=== PATIENT | female | born 1985 | race Asian ===

== ENCOUNTER 2022-06-17 09:07 | Outpatient (CLI) | payer MEDICAID, SELFPAY | END 2022-06-17 09:08 | disposition home or self-care (01) | LOC: LKVREF 06-20 15:58 | PROVIDERS: Visit Provider Advanced Practice Midwife | DX: O09.42 Supervision of pregnancy with grand multiparity, second trimester (principal); Z86.32 Personal history of gestational diabetes | CPT/HCPCS: 86592 ==

== ENCOUNTER 2022-06-19 15:33 | Outpatient (CLI) | payer MEDICAID, SELFPAY ==
[2022-06-19 21:59] LABS: HIV 1/2/P24 Combo Screen* Negative (Negative)
[2022-06-19 22:08] LABS: Hepatitis B Surface Antigen* Negative (Negative)
[2022-06-19 22:25] LABS: Hepatitis C Virus Antibody* Negative (Negative)
[2022-06-22 01:18] LABS: Rapid Plasma Reagin (RPR) Reactive (Non Reactive)
[2022-06-22 02:26] LABS: Varicella-Zoster Virus Ab, IgG 953.8 IV
[2022-06-23 21:10] LABS: Treponema pallidum AbTP-PA Non Reactive (Non Reactive)
== END 2022-06-19 15:34 | disposition home or self-care (01) ==
PROVIDERS: Visit Provider Advanced Practice Midwife
DX: O09.523 Supervision of elderly multigravida, third trimester (principal); Z3A.29 29 weeks gestation of pregnancy
CPT/HCPCS: 86592; 86593; 86703; 86762; 86780; 86787; 86803; 86850; 86900; 86901; 87086; 87340

== ENCOUNTER 2022-08-07 15:18 | Outpatient (CLI) | payer MEDICAID, SELFPAY ==
[2022-08-08 17:16] LABS: Strep B DNA Probe NEGATIVE (Negative)
[2022-08-08 17:17] LABS: Strep B Pen/Amox Allergy No
== END 2022-08-07 15:19 | disposition home or self-care (01) ==
LOC: FRMREF 15:19
PROVIDERS: Visit Provider Advanced Practice Midwife
DX: Z34.83 Encounter for supervision of other normal pregnancy, third trimester (principal); Z3A.36 36 weeks gestation of pregnancy
CPT/HCPCS: 87081; 87653

== ENCOUNTER 2022-09-07 12:06 | Outpatient (CLI) | payer MEDICAID, SELFPAY ==
[2022-09-07 12:24] VITALS: BP 107/70; PULSE 101; PULSE 102; O2SAT 100
[2022-09-07 12:25] VITALS: RESP 16; TEMP 36.5
--- NOTE | 2022-09-07 15:25 | PC.OBNST ---
NST Note NST Note Start: 09/07/22 12:19 Freq: ONCE Status: Active Protocol: Document 09/07/22 15:18 SHANNA (Rec: 09/07/22 15:24 SHANNA [id number]) NST Note 10 Para (# of births) 8 EDC 08/31/22 Gestational Age In Weeks & Days 41 Weeks & 0 Days High Risk Factors Advanced Maternal Age Patient Presented with Complaint(s) of Contractions/cramping Other Complaints Pt. presented to OB with irregular UC's. Pt. was observed and membranes stripped per Pt request. No cervical change was made in her 3 hour stay so she elected to go home. Reactive Yes Appropriate for Gestational Age Yes TASIA Anderson Date 09/07/22 Reactive Yes Appropriate for Gestational Age Yes TASIA Rey Date 09/07/22 OB NST charge Yes Complete NST Note via Write Note Yes The provider's electronic signature indicates the NST is reactive/appropriate for gestational age. *Note to provider: If an addendum is required, open the patient's chart and click on the note under the Nurse/Allied Health tab.
== END 2022-09-07 15:15 | disposition home or self-care (01) ==
LOC: OB OUT 12:07 → OB 12:08
PROVIDERS: Visit Provider Advanced Practice Midwife
DX: O47.1 False labor at or after 37 completed weeks of gestation (principal); Z3A.41 41 weeks gestation of pregnancy; O09.523 Supervision of elderly multigravida, third trimester
CPT/HCPCS: 59025; 99213

== ENCOUNTER 2022-09-11 12:25 | Outpatient (CLI) | payer MEDICAID, SELFPAY ==
--- NOTE | 2022-09-11 12:15 | CRLHL7_ITS ---
For Patients: As a result of the Century Cures Act, medical imaging exams and procedure reports are released immediately into your electronic medical record. You may view this report before your referring provider. If you have questions, please contact your health care provider. Indication: Post dates. Technique: Sonography of the gravid uterus is performed as per biophysical profile protocol. Only that which is discussed below was studied. Comparison: None Findings: The cervix was not visualized. Position is vertex during the exam The single deepest pocket is 5.7 centimeters. The placenta was posterior. heart rate was 141 beats per minute. The biophysical profile score is 6 out of 8. respiratory motions were identified but insufficient as per protocol to warrant 2 points. Impression: 1. The biophysical profile score is 6 out of 8 due to decreased apparent respiratory motions during the time course of this exam. 2. The position is vertex. Single deepest pocket is 5.7 centimeters. Posterior placenta. heart rate 141 beats per minute. Dictated by Ankush Garces MD @ 09/11/2022 1:54:08 PM (Electronically Signed)
== END 2022-09-11 12:26 | disposition home or self-care (01) ==
LOC: US 12:25
PROVIDERS: Visit Provider Advanced Practice Midwife
DX: O48.0 Post-term pregnancy (principal)
CPT/HCPCS: 76819

== ENCOUNTER 2022-09-13 08:03 | Inpatient (IN) | payer MEDICAID, SELFPAY ==
[2022-09-13] VITALS (13 sets, daily range): BP systolic 100–125; BP diastolic 55–81; PULSE 79–111; RESP 16; TEMP 36.6–36.7; O2SAT 96–99; BMI 32.7
[2022-09-13 09:32] LABS: Basophils Percent Auto 0.5 % (0.0-3.0); Eosinophils Percent Auto 0.3 % (0.0-7.0); Hematocrit 33.9 % (33.0-51.0); Hemoglobin* 10.6 gm/dL (12.0-16.0); Immature Granulocytes Pct Auto 0.2 %; Mean Corpuscular HGB Conc 31 gm/dL (32-36); Mean Corpuscular Hemoglobin 26 pg (26-34); Mean Corpuscular Volume 82 fL (80-100); Monocytes Percent Auto 8.3 % (0.0-11.0); Neutrophils Percent Auto 70.7 % (42.0-72.0); Platelet Count* 153 K/uL (140-440); RDW Coefficient of Variation % 16.7 % (11.5-15.5); Red Blood Count 4.15 m/uL (4.00-5.20)
[2022-09-13 09:40] LABS: Slide Review Reflex No
[2022-09-13 10:18] LABS: SARS PCR* Negative SARS-CoV-2 (Negative)
--- NOTE | 2022-09-13 11:24 | P.LDBA_ITS ---
Subjective History of Present Illness Date Seen: 09/13/22 Narrative: Patient is being admitted to Labor and Delivery for IOL for post dates . She is a 36 year old at 41.6 weeks gestation. Her full history and physical was dictated by MANUEL Padilla with supervision by DARRELL Mohr on 08/21/22. Please see this for details. Discussed options for IOL including AROM, cytotec, and pitcin. Not a great candidate for Cytotec due to cervical dilation. Would like to proceed with AROM. 1. History of GDM-diet controlled three previous pregnancies Passed 1hr GTT 2. Grand Multiparity Discuss AMTSL, TXA, IV access in labor 3. Latent TB Recent chest x-ray at work in July was negative. Has always had negative chest x-rays. Offered quantiferon gold at [facility] but declined 4. Late to PNC (1st visit 05/16 at 24.5 weeks) - Pt did not realize she was earlier. 5. Hx PP anemia (hgb 8.1) w/o hemorrhage 6. AMA OB - Problem Based A/P Additional Plan (1) Encounter for induction of labor: Status: Acute (2) AMA (advanced maternal age) multigravida 35+: Status: Acute (3) Supervision of with grand multiparity, third trimester: Status: Acute (4) Post-dates : Status: Acute Plan ASSESSMENT:? at 41.6 weeks gestation? GBS negative? Uncomplicated ? Postterm IOL? ?? PLAN:? 1. Reviewed risks and benefits of IOL with pitocin vs cytotec vs AROM. Pt prefers AROM. Pitocin to follow if needed.? 2. Candidate for analgesia of choice. Planning unmedicated . 3. Anticipate . Plan IV pitocin PP. Consider IV TXA before delivery. Pt is hesitant to receive before delivery. 4. Expectant management at this time. 5. IV in place. 6. Intermittent monitoring after reactive tracing. Delivery/Labor/Induction Plan Plan: induction Induction method: AROM OB Result Labs Blood Type: A (+) positive GBS Status: negative OB Exam Physical Exam Vital signs: Pulse BP 111 H 111/55 L 09/13/22 08:19 09/13/22 08:19 Narrative: Vitals per EMR? Psychiatric:? Alert and oriented x3? HEENT:? Normocephalic, atraumatic? Neck:? Supple without adenopathy or thyromegaly? Lungs:? Clear to auscultation bilaterally? Heart:? Regular rate and rhythm, no murmur, rub or gallop? Abdomen:? Soft, nontender, and gravid? Extremities:? No edema or erythema?? FHT:? Moderate Variability.? Positive Accels.? No Decels. Baseline [].? [place]:? Ctx Q[]min? Detailed Labor and Delivery Exam Patient Gravid: Yes Dilation (cm): 4 Effacement (%): 80 Cervix position: posterior Consistency: soft Contraction Frequency: 8-10 min Contraction intensity: Moderate Fetus (Single) Station: -2 Amniotic Membrane Status: intact Heart Rate Baseline: 125 Monitor Accelerations: Present Monitor Decelerations: None Audiovisual Equipment Operator Variability: Moderate (6-25)
--- NOTE | 2022-09-13 13:32 | PM.OBPNL ---
Subjective Date Seen: 09/13/22 Narrative: Unable to AROM when attempted earlier around 0900 due to posterior cervical position. Encouraged position changes. Offered pitocin but declined at this time and would like to allow her body to attempt to go into labor on its own from here. Agreeable to reevaluate and attempt AROM again around noon. At this time there was was a bulging bag, cervix was more toward anterior and baby felt lower. Easily able to AROM with thin meconium fluid. Baby tolerated well. Meghana was feeling more uncomfortable with contractions but her contractions are still spaced to every 8-10 min. She felt that they were closer together when she was in hands and knees but was not on the monitors at that time. Continue to encourage position changes. Objective Vital Signs: Last Vital Signs Temp 97.8 F 09/13/22 12:05 Pulse 100 09/13/22 12:05 BP 115/62 09/13/22 12:05 Pelvic Exam Dilation (cm): 7 Effacement (%): 90 Station: -2 Contractions Monitor mode: External Contraction Frequency: 8-10 Contraction pattern: Irregular Contraction intensity: Strong/Firm Assessment Assessment: induction ongoing Station: -2 Amniotic Membrane Status: AROM (lightly stained meconium fluid on rupture) Status: Category l Residential Variability: Moderate (6-25) Monitor Accelerations: Present Monitor Decelerations: None Plan Plan: Induction ongoing. Will consider adding pitocin if contraction frequency doesn't increase and she is not making cervical change. Anticipate .
[2022-09-13] MEDS: OXYTOCIN 30 unit/500 ML in NS 30 UNIT/500 ML BAG 300 UNIT IVPB (14:53)
[2022-09-13] MEDS: IBUPROFEN 600 MG TABLET PO ×2 (15:30→21:29)
--- NOTE | 2022-09-13 15:35 | W.PM.OBVAGDE ---
OB Procedure Vag Delivery Mother Details Mother Details: The patient is a 36 year-old, 10, Para 8, admitted on 09/13/22 at 41.6Days gestation for IOL for past dates .?She progressed after AROM. [place] slight urge to push before complete but that feeling intensified after baby rotated and she was complete. Pushed well and delivered. She did have a small tear in the skin at the perineum. The tissues under it were intact. It appeared to be from previous trauma and the patient stated that sometimes with bowl movements she feels a tearing sensation. I did not repair as there was not tissue to grow together. Will evaluate at her 6 week visit. She did have a slightly prolapsed uterus at and after delivery. : 10 Para: 9 Weeks Gestation: 41.6 Admission Date: 09/13/22 Additional Details Amniotic Membrane Status: intact Amniotic Membrane Rupture Date: 09/13/22 Amniotic Membrane Rupture Time: 12:40 Amniotic Membrane Fluid Description: Meconium Stained Analgesia/Anesthesia Type: None Waterbirth: No Pitcoin: No ( only) Intrapartal Events: Labor Induction Induction Method: AROM Complete: 14:25 Pushin:25 Heart: heart tones during second stage were category 2. Decelerations to the 90 with good variability and return to baseline. Delivery Details Delivery Date: 09/13/22 Delivery Time: 14:47 Route of delivery: Infant Gender: Male Infant Viability: Alive; Heart Rate Present Position at Delivery: OA Delivery Details: Delivered over intact perineum via spontaneous vaginal delivery. Infant was placed on maternal abdomen.? Cord was clamped and cut after a 4-5 minute delay. Infant weight pending. 1 Minute Interval Total Score: 8 5 Minute Interval Total Score: 9 Additional Details Shoulder Dystocia: No Placenta Delivery Time: 14:55 Placental Delivery Description: Spontaneous Procedure Done: Global Blood Loss: 300 Laceration: None Episiotomy Description: None Blood Loss Measurement Type: QBL Bakri Used: No Sponge/Need Count Correct: Yes Cord Vessel Description: 3 Vessels Event Summary Status: Mother and infant were stable after delivery. Disposition: floor
[2022-09-13] MEDS: ACETAMINOPHEN 500 MG TABLET 1000 MG PO (19:20)
[2022-09-14] VITALS: BP 107/74; PULSE 96; RESP 16; TEMP 36.6; O2SAT 98
[2022-09-14] MEDS: ACETAMINOPHEN 500 MG TABLET 1000 MG PO ×2 (02:04→07:35)
[2022-09-14 04:40] VITALS: BP 106/73; PULSE 94; RESP 16; TEMP 36.5; O2SAT 96
[2022-09-14] MEDS: IBUPROFEN 600 MG TABLET PO ×3 (04:40→21:32)
[2022-09-14 07:09] LABS: Hemoglobin* 9.4 gm/dL (12.0-16.0)
[2022-09-14 07:39] VITALS: BP 118/79; PULSE 95; RESP 16; TEMP 36.6; O2SAT 97
[2022-09-14] MEDS: DOCUSATE SODIUM 100 MG CAPSULE PO (12:04)
[2022-09-14 12:48] VITALS: BP 111/75; PULSE 95; RESP 18; TEMP 36.9; O2SAT 98
--- NOTE | 2022-09-14 13:28 | P.OBPN_ITS ---
OB - PN:Subj Subjective Date Seen: 09/14/22 Patient comments OB post-: no complaints, pain well controlled, tolerating diet and flatus present [place] status: and doing well [place] feeding status: exclusively Narrative: The patient feels well.? The pain is well controlled with current medications.? She has no new complaints.? Urinary output is adequate and she is voiding w ithout difficulty.? Has a good appetite, is tolerating a general diet, is passing flatus, and has not had a bowel movement.? Has scant amount of rubra lochia.? She is ambulating well.? OB - PN: Obj Exam Physical Exam: Vital signs: Temp Pulse Resp BP Pulse Ox O2 Del Method 98.5 F 95 18 111/75 98 Room Air 09/14/22 12:48 09/14/22 12:48 09/14/22 12:48 09/14/22 12:48 09/14/22 12:48 09/14/22 12:48 Narrative: GENERAL APPEARANCE:? normal affect, alert, no distress? MOOD:? appropriate? CHEST:? clear to auscultation and percussion? HEART:? regular rate and rhythm? ABDOMEN:? soft, non-tender the uterine fundus is U/1 and is appropriate for the stage of recovery.? PERINEUM:? mild edema of the perineum, there is an intact perineum that is healing well.? EXTREMITIES:? normal and no edema? OB - PN: Obj Data Labs Labs: Laboratory Results - last 24 hr 09/14/22 07:00 Hgb 9.4 L OB - PN: A/P Vaginal Delivery Assessment and Plan (1) AMA (advanced maternal age) multigravida 35+: Status: Acute (2) care following vaginal delivery: Status: Acute (3) Lactating mother: Status: Acute Plan day: 1 Plan: routine care Comments: 36 year old on day 1.? Would like to discharge tomorrow morning.?
[2022-09-14] MEDS: FERROUS SULFATE 325 MG TABLET PO (16:51)
[2022-09-14 20:00] VITALS: BP 107/71; PULSE 85; RESP 16; TEMP 36.4; O2SAT 98
[2022-09-14] MEDS: LANOLIN CREAM 1 APPLIC TOPICAL (21:35)
[2022-09-15] MEDS: IBUPROFEN 600 MG TABLET PO ×2 (04:46→10:55)
[2022-09-15 04:50] VITALS: BP 132/80; PULSE 81; RESP 16; TEMP 36.4; O2SAT 97
[2022-09-15 09:15] VITALS: BP 105/72; PULSE 82; RESP 18; TEMP 36.4; O2SAT 98
--- NOTE | 2022-09-15 09:25 | P.DS_ITS ---
DS: Providers Provider Time Seen by Provider: 09:25 Date Seen: 09/15/22 Date of admission: 09/13/22 08:03 Primary care physician: Not a Local Provider Admitting Clinician: Skyla Chou MD Attending Physician on discharge: vEangelina Castano CNM DS: Diagnosis Discharge Diagnosis (1) care following vaginal delivery: Status: Acute (2) Lactating mother: Status: Acute Exam Narrative: Exam Narrative: VSS, afebrile GENERAL APPEARANCE: ?normal affect, alert, no distress MOOD: ?appropriate HEENT: normocephalic, neck supple, full ROM CHEST: ?Symmetrical chest wall movement. ?Normal respiratory effort. ?Clear to auscultation HEART: ?regular rate and rhythm ABDOMEN: ?soft, non-tender. Uterine fundus is firm, 2 above Umbilicus, Midline and is appropriate for the stage of recovery. ?Bowel sounds present. PERINEUM: ?mild edema of the perineum, there is a 1st degree laceration that is healing well. EXTREMITIES: ?normal and trace edema Const: Vital Signs, click to edit/add: Vital Signs - 24 hr 09/14/22 12:48 09/14/22 20:00 09/15/22 04:50 Temperature 98.5 F 97.5 F L 97.6 F Pulse Rate [Pulse Oximeter] 95 85 81 Respiratory Rate 18 16 16 Blood Pressure [Le ft Arm] 111/75 107/71 132/80 Pulse Oximetry 98 98 97 Oxygen Delivery Me thod Room Air Room Air Room Air Documenting provider has reviewed patient's vital signs: yes OB - DS: Summary Hospital Course Hospital Course: Meghana is a 36 y.o. G 10 P 9 who was admitted to L & D for IOL for post dates. ?She had an uncomplicated NVD The patient feels well. ?The pain is well controlled with current medications. ?She has no new complaints. ?She is breast feeding and reports things are going well, though she does have some nipple soreness.? the patient has done well.? Vitals have been stable.? She has remained afebrile.? Has a good appetite, is tolerating a general diet. ?She is voiding without difficulty.? She is passing gas and has not had a bowel movement.? She is ambulating and denies any dizziness.? Has Small amount of rubra lochia. Problems: Acute anemia plan: Discharge home with baby. Follow up in 2 weeks and 6 weeks. , may follow up with if needed Acute anemia, continue iron supplementation for 6 weeks Peripartum Data Infant delivery method: Vaginal Laceration description: Perineal - 1st Degree Gender: Male Discharge Plan: Home Status at Discharge Functional status at discharge: independent ambulation Overall status at discharge: patient is progressing back to baseline Time Spent with Patient Time attestation: Total time spent providing and/or coordinating discharge services: Time spent: Less than 30 minutes Discharge Plan Discharge Disposition: Home, Self-Care Date of Admission: 09/13/22 08:03 Attending Provider on Discharge: Gwen Torres Primary Care Provider: Provider,Not a Local Condition: Stable Anticipated Discharge Date/Time: 09/15/22 11:28 Discharge Medications: New docusate sodium 100 mg Capsule 100 mg PO BID PRNQty: 100 0RF Rx Instructions: Take 1 cap 1-2 times a day as needed for constipation ferrous sulfate 325 mg (65 mg iron) Tablet 325 mg PO DAILYWM Qty: 45 0RF ibuprofen 600 mg Tablet 600 mg PO Q6H PRNQty: 60 0RF Continued DHA 200 mg capsule PO Discharge Orders: Discharge Order (Routine); Ordered 09/15/22 Ordered By: Gwen Torres Patient Education: OB Over the Counter Medication Information, OB Vaginal/Breast Feeding Additional Instructions: Follow up in 2 and 6 weeks in the office. Your iron remains a little low. Continue iron supplement for 6 weeks. Activity Level: Activity as Tolerated Discharge Diet: Regular Follow Up Appointments: Provider,Not a Local [Primary Care Provider] - Forms: [employer] Dx Info Instructions
[2022-09-15] MEDS: FERROUS SULFATE 325 MG TABLET PO (10:55)
[2022-09-15] MEDS: DOCUSATE SODIUM 100 MG CAPSULE PO (10:56)
== END 2022-09-15 11:39 | disposition home or self-care (01) | DRG 806 ==
PROVIDERS: Admitting Provider Obstetrics & Gynecology; Visit Provider Advanced Practice Midwife
DX: O70.0 First degree perineal laceration during delivery (principal); D62 Acute posthemorrhagic anemia; Z37.0 Single live birth; Z3A.41 41 weeks gestation of pregnancy; O99.02 Anemia complicating childbirth
CPT/HCPCS: 36415; 85018; 85025; 86850; 86900; 86901; 87635; A9270